=== PATIENT | female | born 1975 | race Caucasian/White ===

== ENCOUNTER 2016-05-19 09:02 | Observation (INO) | payer MEDICAID ==
[~2016-05-19] VITALS: Ht 154.9 cm; Wt 85.7 kg
[~2016-05-19 09:02] MED LIST: ALBU17AE27; ALBU8.5H3 IH
[2016-05-19 09:22] VITALS: BP 110/62
[2016-05-19] MEDS ORDERED: ADV250 IH (09:43)
[2016-05-19] MEDS ORDERED: PREN1TAB80 PO (09:43)
== END 2016-05-19 10:10 | disposition home or self-care (01) ==
LOC: 4S 09:02
PROVIDERS: ADMIT Obstetrics & Gynecology; ATTEND Obstetrics & Gynecology
DX: O99.513 Diseases of the respiratory system complicating pregnancy, third trimester (principal); Z3A.37 37 weeks gestation of pregnancy
CPT/HCPCS: 59025; G0378

== ENCOUNTER 2016-05-22 13:05 | Observation (INO) | payer MEDICAID ==
[~2016-05-22 13:05] MED LIST changes: +ADV250 IH; -ALBU17AE27; -ALBU8.5H3 IH; +PREN1TAB80 PO
[2016-05-22 13:54] VITALS: BP 100/56
== END 2016-05-22 14:20 | disposition home or self-care (01) ==
LOC: 4S 13:05
PROVIDERS: ADMIT Specialist; ATTEND Specialist
DX: O99.513 Diseases of the respiratory system complicating pregnancy, third trimester (principal); J45.909 Unspecified asthma, uncomplicated; O09.523 Supervision of elderly multigravida, third trimester; Z3A.38 38 weeks gestation of pregnancy
CPT/HCPCS: 59025; G0378

== ENCOUNTER 2016-05-25 07:55 | Observation (INO) | payer MEDICAID ==
[~2016-05-25] VITALS: Ht 154.9 cm; Wt 85.3 kg
[2016-05-25 08:26] VITALS: BP 103/60
== END 2016-05-25 11:35 | disposition home or self-care (01) ==
LOC: 4S 07:55
PROVIDERS: ADMIT Specialist; ATTEND Specialist
DX: O99.513 Diseases of the respiratory system complicating pregnancy, third trimester (principal); J45.909 Unspecified asthma, uncomplicated; O09.523 Supervision of elderly multigravida, third trimester; Z3A.38 38 weeks gestation of pregnancy
CPT/HCPCS: 76805; G0378

== ENCOUNTER 2016-05-29 08:00 | Observation (INO) | payer MEDICAID ==
[~2016-05-29] VITALS: Ht 154.9 cm; Wt 85.3 kg
[2016-05-29 08:21] VITALS: BP 100/55
== END 2016-05-29 08:55 | disposition home or self-care (01) ==
LOC: 4S 08:00
PROVIDERS: ADMIT Obstetrics & Gynecology; ATTEND Obstetrics & Gynecology
DX: O99.513 Diseases of the respiratory system complicating pregnancy, third trimester (principal); J45.909 Unspecified asthma, uncomplicated; O09.523 Supervision of elderly multigravida, third trimester; Z3A.39 39 weeks gestation of pregnancy
CPT/HCPCS: 59025; G0378

== ENCOUNTER 2016-06-01 08:03 | Observation (INO) | payer MEDICAID ==
[~2016-06-01] VITALS: Ht 154.9 cm; Wt 86.2 kg
[2016-06-01 08:29] VITALS: BP 119/60
== END 2016-06-01 10:00 | disposition home or self-care (01) ==
LOC: 4S 08:03
PROVIDERS: ADMIT Obstetrics & Gynecology; ATTEND Obstetrics & Gynecology
DX: O99.513 Diseases of the respiratory system complicating pregnancy, third trimester (principal); O09.523 Supervision of elderly multigravida, third trimester; J45.909 Unspecified asthma, uncomplicated; Z3A.39 39 weeks gestation of pregnancy
CPT/HCPCS: 59025; G0378

== ENCOUNTER 2016-06-03 11:00 | Observation (INO) | payer MEDICAID ==
[2016-06-03 11:49] VITALS: BP 116/64
== END 2016-06-03 12:55 | disposition home or self-care (01) ==
LOC: 4S 11:00
PROVIDERS: ADMIT Obstetrics & Gynecology; ATTEND Obstetrics & Gynecology
DX: O09.523 Supervision of elderly multigravida, third trimester (principal); Z3A.39 39 weeks gestation of pregnancy
CPT/HCPCS: 59025; G0378

== ENCOUNTER 2016-06-05 08:10 | Inpatient (IN) | payer MEDICAID ==
[~2016-06-05] VITALS: Ht 154.9 cm; Wt 86.2 kg
[2016-06-05 09:03] VITALS: BP 108/55
[2016-06-05] MEDS ORDERED: RINGERS SOLUTION,LACTATED 1,000 ML IV PRN (10:05)
[2016-06-05] MEDS ORDERED: OXYTOCIN 30 UNITS/LACT RINGERS 500 ML IV ONE (10:05)
[2016-06-05] MEDS ORDERED: DINOPROSTONE 10 MG VAGINAL SUPPOSITORY VG ONE (10:15)
[2016-06-05] MEDS ORDERED: LIDOCAINE HCL/PF 1% 30 ML VIAL INJ PRN (10:15)
[2016-06-05] MEDS ORDERED: FentaNYL CITRATE-PF 100 MCG/2 ML VIAL IVP PRN (10:15)
[2016-06-05] MEDS ORDERED: METOCLOPRAMIDE HCL 5 MG/ML 2 ML VIAL IVP PRN (10:15)
[2016-06-05] MEDS ORDERED: CITRIC ACID/SODIUM CITRATE 30 ML SOLUTION UDCUP PO PRN (10:15)
[2016-06-05] MEDS: RINGERS SOLUTION,LACTATED 1,000 ML IV SCH ×4 (10:45→20:55)
[2016-06-05 10:46] LABS: BASOPHILS % (AUTO) 1.1 % (0.0-2.0); EOSINOPHILS # (AUTO) 0.45 K/uL (0.00-0.70); EOSINOPHILS % (AUTO) 5.19 % (1.0-6.0); HEMATOCRIT 41.7 % (36-46); HEMOGLOBIN 14.1 g/dL (12.0-16.0); LYMPHOCYTES # (AUTO) 1.4 K/uL (1.0-4.8); LYMPHOCYTES % (AUTO) 15.6 % (22.0-44.0); MEAN CORPUSCULAR HEMOGLOBIN 29.3 pg (26.0-34.0); MEAN CORPUSCULAR HGB CONC 33.7 G/dL (31.0-37.0); MEAN CORPUSCULAR VOLUME 87 fL (80-100); MONOCYTES # (AUTO) 0.6 K/uL (0.1-1.0); MONOCYTES % (AUTO) 6.6 % (2.0-9.0); NEUTROPHILS # (AUTO) 6.2 K/uL (1.8-7.7); NEUTROPHILS % (AUTO) 71.5 % (40.0-70.0); RED BLOOD CELL COUNT(AUTO) 4.81 MIL/uL (4.00-5.20); RED CELL DISTRIBUTION WIDTH 15.6 % (11.5-14.5); WHITE BLOOD COUNT (AUTO) 8.7 K/uL (4.5-11.0)
[2016-06-05] MEDS ORDERED: AMPICILLIN SODIUM 2 GM/NS 100 ML IV ONE (13:00)
[2016-06-05] MEDS: AMPICILLIN SODIUM 1 GM/NS 50 ML IV SCH ×2 (17:12→20:55)
[2016-06-05] MEDS ORDERED: FentaNYL/BUPIV 0.125%/NS/PF 200 ML ED ONE (18:41)
[2016-06-05] MEDS ORDERED: BUPIVACAINE HCL/PF 0.25% 10 ML VIAL ONE (18:41)
[2016-06-05] MEDS: OXYGEN THERAPY IH SCH (20:55)
[2016-06-05] MEDS ORDERED: ACETAMINOPHEN/CODEINE 300-30 MG TABLET PO PRN ×2 (22:00)
[2016-06-05] MEDS ORDERED: BENZOCAINE 20%/MENTHOL 56 GM SPRAY CANISTER TP PRN (22:00)
[2016-06-05] MEDS ORDERED: GLYCERIN/WITCH HAZEL LEAF 40 PADS JAR TP PRN (22:00)
[2016-06-05] MEDS ORDERED: LANOLIN 7 GM OINTMENT TP PRN (22:00)
[2016-06-05] MEDS ORDERED: MEASLES/MUMPS/RUBELLA VACCINE, LIVE 0.5 ML/VIAL SQ ONE (22:00)
[2016-06-05] MEDS ORDERED: FentaNYL/BUPIV 0.125%/NS/PF 200 ML ED PRN (23:19)
[2016-06-05] MEDS ORDERED: DiphenhydrAMINE HCL 50 MG/ML VIAL IVP PRN (23:30)
[2016-06-05] MEDS ORDERED: ONDANSETRON HCL 4 MG/2 ML VIAL IVP PRN (23:30)
[2016-06-05] MEDS ORDERED: NALBUPHINE HCL 10 MG/ML VIAL IVP PRN (23:30)
[2016-06-06] MEDS ORDERED: FLUTICASONE/SALMETEROL 100 MCG-50 MCG/INH DISKUS INHALER [28] IH ONE (07:30)
[2016-06-06] MEDS: OXYGEN THERAPY IH SCH (08:00)
[2016-06-06] MEDS: MAGNESIUM HYDROXIDE SUSPENSION 30 ML UDCUP PO SCH ×2 (08:50→21:00)
[2016-06-06] MEDS: IBUPROFEN 600 MG TABLET PO PRN (14:59)
[2016-06-07] MEDS: IBUPROFEN 600 MG TABLET PO PRN (04:22)
[2016-06-07] MEDS ORDERED: DOCU250C91 PO (07:57)
[2016-06-07] MEDS ORDERED: IBUP-2070 PO (07:57)
== END 2016-06-07 14:00 | disposition home or self-care (01) | DRG 560 ==
LOC: 4S 08:10 → OBSVTOIN 08:10
PROVIDERS: ADMIT Obstetrics & Gynecology; ATTEND Obstetrics & Gynecology
PROC: 10907ZC Drainage of Amniotic Fluid, Therapeutic from Products of Conception, Via Natural or Artificial Opening (ICD-10-PCS; principal; 2016-06-05)
PROC: 10D07Z6 Extraction of Products of Conception, Vacuum, Via Natural or Artificial Opening (ICD-10-PCS; 2016-06-05)
PROC: 0KQM0ZZ Repair Perineum Muscle, Open Approach (ICD-10-PCS; 2016-06-05)
PROC: 3E0S3CZ (ICD-10-PCS; 2016-06-05)
PROC: 00HU33Z Insertion of Infusion Device into Spinal Canal, Percutaneous Approach (ICD-10-PCS; 2016-06-05)
DX: O99.824 Streptococcus B carrier state complicating childbirth (principal); O48.0 Post-term pregnancy; O09.523 Supervision of elderly multigravida, third trimester; O77.0 Labor and delivery complicated by meconium in amniotic fluid; O76 Abnormality in fetal heart rate and rhythm complicating labor and delivery; O69.81X0 Labor and delivery complicated by cord around neck, without compression, not applicable or unspecified; O70.1 Second degree perineal laceration during delivery; O66.5 Attempted application of vacuum extractor and forceps; Z3A.40 40 weeks gestation of pregnancy; Z37.0 Single live birth; Z91.013 Allergy to seafood
CPT/HCPCS: 86850; 86900; 86901; J0290; J2590; J3490; J7120